=== PATIENT | male | born 1960 ===

== ENCOUNTER 2017-11-03 15:57 | Inpatient (IN) | payer OTHER ==
[2017-11-03 15:58] VITALS: BMI 35.2
[2017-11-03 17:27] LABS: BASO % 0.5 % (0.0-2.0); EOS # 0.2 K/uL (0.0-0.7); EOS % 2.4 % (0.0-4.0); HEMOGLOBIN 13.9 g/dL (12.0-18.0); LYMPH # 2.1 K/uL (1.0-4.3); LYMPH % 24.1 % (20.0-40.0); MEAN CELL VOLUME 82.9 fL (80.0-94.0); MEAN CORPUSCULAR HEMOGLOBIN 28.6 pg (27.0-31.0); MEAN CORPUSCULAR HGB CONC 34.5 g/dL (33.0-37.0); MEAN PLATELET VOLUME 7.5 fL (7.2-11.7); MONO # 0.8 K/uL (0.0-0.8); MONO % 9.5 % (0.0-10.0); NEUT # 5.5 K/uL (1.8-7.0); NEUT % 63.5 % (50.0-75.0); NRBC % 0.2 % (0.0-2.0); RBC 4.87 Mil/uL (4.40-5.90); RED CELL DISTRIBUTION WIDTH 14.1 % (11.5-14.5); WHITE BLOOD COUNT 8.7 K/uL (4.8-10.8)
--- NOTE | 2017-11-03 17:40 | C.PDOC ---
History Of Present Illness 57 y/o male presents to the ED requesting detox from heroin. Patient admits he uses heroin intranasally, but has history of IVDA in the past. Last use was earlier today around 2-3pm and he used 5 bags. States that he typically uses 5- 8 bags per day. Patient also reports history of HIV and hepatitis. States he suffers from significant withdrawal symptoms including tremors, sweats, abdominal pain, vomiting, and diarrhea. Currently he denies any physical complaints. Time Seen by Provider: 11/03/17 16:52 Chief Complaint (Nursing): Substance Abuse History Per: Patient History/Exam Limitations: no limitations Onset/Duration Of Symptoms: Days Current Symptoms Are (Timing): Still Present Suicide/Self Injury Attempted (Context): None Modifying Factor(s): Other (Heroin) Involuntary Hold By: None Past Medical History Reviewed: Historical Data, Nursing Documentation, Vital Signs Vital Signs: Last Vital Signs Temp 98 F 11/03/17 16:12 Pulse 93 H 11/03/17 16:12 Resp 18 11/03/17 16:12 BP 144/76 11/03/17 16:12 Pulse Ox 95 11/03/17 18:04 - Medical History PMH: Hepatitis, HIV Other PMH: Substance abuse - [facility] Procedures APPLICATION OF SPLINT (12/22/14) CLOSURE SKIN & SUBCUTANEOUS NEC (10/27/14) Family History: States: Unknown Family Hx - Social History Hx Tobacco Use: Yes Hx Alcohol Use: No Hx Substance Use: Yes (heroin) - Immunization History Hx Tetanus Toxoid Vaccination: Yes Hx Influenza Vaccination: Yes Hx Pneumococcal Vaccination: No Review Of Systems Except As Marked, All Systems Reviewed And Found Negative. Constitutional: Negative for: Fever, Chills, Sweats Gastrointestinal: Negative for: Nausea, Vomiting, Abdominal Pain Neurological: Negative for: Weakness, Other (tremors or shakes) Physical Exam - Physical Exam Appears: Non-toxic, No Acute Distress Skin: Normal Color, Warm, Dry Head: Atraumatic, Normacephalic Eye(s): bilateral: Normal Inspection Oral Mucosa: Moist Teeth: Edentulous (missing several teeth) Neck: Normal ROM, Supple Chest: Symmetrical Cardiovascular: Rhythm Regular, No Murmur Respiratory: Normal Breath Sounds, No Rales, No Rhonchi, No Wheezing Gastrointestinal/Abdominal: Soft, No Tenderness, No Distention Back: Normal Inspection Extremity: Bilateral: Atraumatic, Normal Color And Temperature, Normal ROM Neurological/Psych: Oriented x3, Normal Speech ED Course And Treatment - Laboratory Results Result Diagrams: 11/03/17 17:26 11/03/17 17:07 O2 Sat by Pulse Oximetry: 95 (RA) Pulse Ox Interpretation: Normal Medical Decision Making Medical Decision Making: Impression: Heroin abuse, requesting detox Plan: * CMP * Urine drug screen * Alcohol serum * CBC * Urinalysis * Crisis evaluation Disposition Counseled Patient/Family Regarding: Studies Performed, Diagnosis - Disposition Disposition: HOSPITALIZED Disposition Time: 18:54 Condition: GUARDED Forms: [employer] ([place]) - Clinical Impression Clinical Impression: Drug dependence - Scribe Statement The provider has reviewed the documentation as recorded by the Scribe (Lilliana Ortiz) Provider Attestation: All medical record entries made by the Scribe were at my direction and personally dictated by me. I have reviewed the chart and agree that the record accurately reflects my personal performance of the history, physical exam, medical decision making, and the department course for this patient. I have also personally directed, reviewed, and agree with the discharge instructions and disposition. Decision To Admit - Pt Status Changed To: Hospital Disposition Of: Inpatient - Admit Certification Admit to Inpatient:: After my assessment, the patient will require hospitalization for at least two midnights. This is because of the severity of symptoms shown, intensity of services needed, and/or the medical risk in this patient being treated as an outpatient. - InPatient: Physician Admission Certification: I certify that this patient requires 2 or more midnights of care for the following reason:: needs medical detox, hx of severe opioid withdrawl - . Bed Request Type: Detox Patient Diagnosis: Drug dependence
[2017-11-03 17:48] LABS: SQUAMOUS EPITHIAL < 1 /hpf (0-5); URINE BACTERIA RARE (<OCC); URINE BILIRUBIN NEGATIVE (NEGATIVE); URINE BLOOD NEGATIVE (NEGATIVE); URINE CALCIUM OXALATE CRYSTALS RARE /hpf (<OCC); URINE CLARITY Clear (Clear); URINE COLOR Yellow (YELLOW); URINE GLUCOSE (UA) NORMAL (Normal); URINE LEUKOCYTE ESTERASE NEG Leu/uL (Negative); URINE PROTEIN NEGATIVE (NEGATIVE)
[2017-11-03 18:18] LABS: ALB/GLOB RATIO 1.1 (1.0-2.1); ALBUMIN 4.3 g/dL (3.5-5.0); ALT/SGPT 28 U/L (21-72); AST/SGOT 14 U/L (17-59); BLOOD UREA NITROGEN 11 mg/dL (9-20); CALCIUM 9.4 mg/dl (8.6-10.4); GFR AFRICAN-AMERICAN > 60; GFR NON-AFRICAN AMERICAN > 60
[2017-11-03 18:40] LABS: BARBITURATES, UR NEGATIVE (NEGATIVE); BENZODIAZEPINES, UR NEGATIVE (NEGATIVE); PHENCYCLIDINE, UR NEGATIVE (NEGATIVE)
[2017-11-03 18:48] LABS: OPIATES, UR POSITIVE (NEGATIVE)
--- NOTE | 2017-11-03 19:03 | PCM.BM ---
<Rashad Garcia - Last Filed: 11/03/17 19:01> Treatment Plan Problems - Problems identified on initial assessmt potential for opiate withdrawal Date Initiated: 11/03/17 Time Initiated: 19:02 Status: Active Treatment assets and liabiliti Patient Liabilities: substance abuse, medical problems - Milieu Protocol Maintain good personal hygiene: daily Encourage regular showers, daily Remind patient to perform daily oral care, daily Assist patient to perform ADL's Conduct patient checks and document Observation sheet: Q15 minutes Maintain personal safety: every shift Educate patient to report safety concerns to staff, every shift Monitor environment for contraband/sharps Medication safety: Monitor for expected outcome, potential side effects: every shift, Assess barriers to learning: every shift, Assess readiness for medication education: every shift <Marcela Loyola - Last Filed: 11/08/17 08:52> - Diagnosis (1) Opioid use disorder, severe, dependence Status: Acute Interventions: 11/06/17 18:52 * Assess 7x/week regarding severity of withdrawal * Educate regarding risks, benefits, side effects and alternatives of medications * Use Motivational Interviewing for abstinence * Use CBT for relapse prevention * Medication management for withdrawal symptoms * Encourage medication assisted treatment *
[2017-11-04] MEDS ORDERED: Aluminum Hydroxide/Magnesium Hydroxide Susp (30 mL) PO PRN (00:01)
[2017-11-04] MEDS: [UNRECOGNIZED DRUG - OTHER] PO SCH (10:39)
--- NOTE | 2017-11-04 21:05 | PCM.PSYCH ---
Initial Psychiatric Evaluation - Initial Psychiatric Evaluation Type of Admission: Voluntary Legal Status: Capacity Chief Complaint (in patient's own words): I need help from his substance use. History of Present Illness and Precipitating Events: Patient is a 57 years old, single, unemployed, male with no previous psychiatric history was admitted due to withdrawing from heroin and cannabis. Patient was a poor historian and is very difficult to get history from the patient. Reported he started using heroin 30 years ago. He was in [facility] in the past has court mandated treatment. Reported he relapsed on heroin about 78 months ago and currently he was using 5 bags daily, sniffing. Last use was yesterday. Cannabis: Started using cannabis at 16 years of age, was using 2-3 joints daily. Last used yesterday. He also smokes 4-5 cigarettes daily and is requesting for nicotine patch. He has HIV and hepatitis C. He was born in [place], has 11th grade of education from [place]. Moved to [facility] in [place]. He is not working, on disability. Never and has 3 grown up children. He lives alone. His height is 5 feet 7 inches and weight is 219 pounds. Current Medications: Active Medications Generic Name Dose Route Start Last Admin Trade Name Freq PRN Reason Stop Dose Admin Al Hydrox/Mg Hydrox/Simethicone 30 ml 11/04/17 00:01 Maalox 30 Ml PO TID PRN Indigestion / Heartburn Clonidine HCl 0.1 mg 11/03/17 20:45 Catapres PO Q6 PRN high bp Dicyclomine HCl 20 mg 11/04/17 00:02 Bentyl PO Q6 PRN Abdominal Cramp Dolutegravir Sodium 50 mg 11/04/17 10:00 11/04/17 10:39 Tivicay PO 11/15/17 10:01 50 mg DAILY JANINA Administration Protocol Gabapentin 400 mg 11/04/17 10:00 11/04/17 17:58 Neurontin PO 400 mg TID JANINA Administration Home Med 1 tab 11/04/17 10:00 11/04/17 10:39 Patient's Own Medication PO 1 tab DAILY JANINA Administration Hydroxyzine HCl 25 mg 11/03/17 20:47 Atarax PO Q6 PRN Anxiety Ibuprofen 400 mg 11/04/17 00:03 Motrin Tab PO Q6 PRN Pain, moderate (4-7) Loperamide HCl 2 mg 11/04/17 00:01 Imodium PO Q8 PRN Diarrhea Nicotine 1 patch 11/04/17 12:30 11/04/17 13:07 Nicoderm Cq TD 1 patch DAILY JANINA Administration Ondansetron HCl 4 mg 11/04/17 00:01 Zofran Tab PO Q8 PRN Nausea/Vomiting Trazodone HCl 50 mg 11/03/17 20:44 Desyrel PO HS PRN insomnia Past Psychiatric History - Past Psychiatric History Previous Treatment History: Intensive Outpatient [facility]: [facility] History of Abuse: None reported History of ETOH/Drug Use: See HPI History of Family Illness: Reported his brother has history of heroin use Pertinent Medical Hx (Current Medical&Sleep Prob, Allergies): Allergies Allergy/AdvReac Type Severity Reaction Status Date / Time No Known Allergies Allergy Verified 11/03/17 16:15 Cephalexin [Keflex] 500 mg PO BID #14 cap 09/14/15 Emtricitabine/Tenofovir Diso [Truvada 200 MG-300 MG] 1 tab PO DAILY 09/14/15 Sulfamethoxazole/Trimethoprim [Bactrim DS 800 mg-160 mg] 1 tab PO BID #14 tab HIV Hepatitis C Review of Systems - Psychiatric Psychiatric: As Per HPI Mental Status Examination - Personal Presentation Personal Presentation: Looks stated age - Affect Affect: Depressed - Motor Activity Motor Activity: Calm - Reliability in Providing Information Reliability in Providing Information: Fair - Speech Speech: Organized - Mood Mood: Depressed - Formal Thought Process Formal Thought Process: No Impairment - Hallucinations/Delusions Hallucinations: Other (None reported) Delusions: Other - Obsessions/Compulsions Obsessions: None Compulsions: None - Cognitive Functions Orientation: Person, Place, Situation, Time Sensorium: Alert Attention/Concentration: Attentive Abstract Thinking: Blanch Estimate of Intelligence: Average Judgement: Intact, as evidence by: Insight regarding need for hospitalization Memory: Recent intact, as evidence by: Ability to recall events of the day, Remote intact, as evidenced by: Ability to recall historical events - Risk Risk: Withdrawal, Diminished functioning - Strength & Assets Inventory Strength & Assets Inventory: Cooperative - Limitations Limitations: Living alone DSM 5 DX - DSM 5 DSM 5 Diagnosis: Opiate use disorder moderate Cannabis use disorder moderate - Recommended/Plan of Treatment Treatment Recommendations and Plan of Treatment: Patient education. Supportive therapy. CBT for relapse prevention. PA for abstinence. We will start Subutex taper for opiate withdrawal symptoms. Other when necessary medications. Projected ELOS: 4-5 days - Smoking Cessation Smoking Cessation Initiated: Yes
[2017-11-05] MEDS: [UNRECOGNIZED DRUG - OTHER] PO SCH (10:40)
[2017-11-05 13:22] VITALS: RESP 18
--- NOTE | 2017-11-05 17:38 | PCM.PYCHPN ---
Psychiatric Progress Note - Psychiatric Progress Note Patient seen today, length of contact: 15 minutes Patient Chief Complaint: I have a lot of withdrawal symptoms. Problems Identified/Issues Discussed: Patient seen, chart reviewed, case discussed with the staff. Issues related to illness and treatment were discussed with the patient and staff. Reported compliant with treatment with no adverse affects. Tolerating treatment very well. Calm and cooperative. Mood reported as anxious. Affect appropriate. Patient reported a lot of withdrawal symptoms. We will start methadone taper. His cows score was 9. Aftercare discussed with the patient. Patient was awake, alert and oriented 3. Denied any delusions, auditory or visual hallucinations, suicidal ideations or homicidal ideations at the time of evaluation. Medical Problems: HIV Hepatitis C Diagnostic Results: Reviewed Medication Change: Yes (Started methadone taper) Medical Record Reviewed: Yes Mental Status Examination - Cognitive Function Orientation: Person, Place, Situation, Time Memory: Intact Attention: WNL Concentration: WNL Association: [facility] Fund of Knowledge: [facility] Decription of patient's judgement and insights: Fair - Mood Mood: Anxious - Affect Affect: Other (Appropriate) - Speech Speech: Appropriate - Formal Thought Process Formal Thought Process: No Impairment Psychotic Thoughts and Behaviors: None - Suicidal Ideation Suicidal Ideation: No - Homicidal Ideation Homicidal Ideation: No Goal/Treatment Plan - Goal/Treatment Plan Need for Continued Stay: Remain at risks for inpatient hospitalization, Discharge may exacerbated symptoms, Severe functional impairment Progress Toward Problem(s) and Goals/Treatment Plan: Patient education. Supportive therapy. CBT for relapse prevention. MS for abstinence. We will start methadone taper for opiate withdrawal symptoms. Other when necessary medications. Estimated Date of D/C: 11/08/17 - Smoking Cessation Smoking Cessation Initiated: Yes
[2017-11-06] MEDS: [UNRECOGNIZED DRUG - OTHER] PO SCH (10:03)
--- NOTE | 2017-11-06 15:25 | PCM.PYCHPN ---
Psychiatric Progress Note - Psychiatric Progress Note Patient seen today, length of contact: 15 minutes Patient Chief Complaint: "So so" Problems Identified/Issues Discussed: The pt is seen, chart reviewed, case discussed with staff. The pt is compliant with medications and reports no side-effects. Symptoms are improving but needs more time to stabilize. After care discussed, support and psychoeducation given. Medication Change: Yes (Started methadone taper) Medical Record Reviewed: Yes Mental Status Examination - Cognitive Function Orientation: Person, Place, Situation, Time Memory: Intact Attention: WNL Concentration: WNL Association: WNL Fund of Knowledge: WNL - Mood Mood: Anxious - Affect Affect: Other (Appropriate) - Speech Speech: Appropriate - Formal Thought Process Formal Thought Process: No Impairment - Suicidal Ideation Suicidal Ideation: No - Homicidal Ideation Homicidal Ideation: No Goal/Treatment Plan - Goal/Treatment Plan Need for Continued Stay: Remain at risks for inpatient hospitalization, Discharge may exacerbated symptoms, Severe functional impairment Progress Toward Problem(s) and Goals/Treatment Plan: Taper with methadone Gabapentin for augmentation if needed As needed medications All risks, benefits and alternatives of the meds discussed, and the pt agreed and understood. Attend groups and activities Supportive therapy and psychoeducation MD for abstinence CBT for relapse prevention Encourage MAT Refer to rehab or IOP, and self-help groups Smoking cessation with MD Nicotine patch if needed Estimated Date of D/C: 11/08/17
[2017-11-07] MEDS: [UNRECOGNIZED DRUG - OTHER] PO SCH (09:34)
--- NOTE | 2017-11-08 08:48 | PCM.PYCHDC ---
Mental Status Examination - Mental Status Examination Orientation: Person Discharge Summary - Discharge Note Consultations:: List each consultation separately and include: 1. Reason for request. 2. Findings. 3. Follow-up Summary of Hospital Course include:: 1. Description of specific treatment plan utilized for patients during their course of treatmen. 2. Summarize the time- course for resolution of acute symptoms and/or regressed behaviors. 3. Describe issues identified and worked on during hospitalization. 4. Describe medication utilized. 5. Describe medical problems identified and treated. 6. Reassessment of suicide risk Summary of Hospital Course: He will go to [facility] - Final Diagnosis (DSM 5) Condition upon Discharge: GUARDED Disposition: HOME/ ROUTINE Follow-up Treatment Plan: Taper with methadone Gabapentin for augmentation if needed As needed medications All risks, benefits and alternatives of the meds discussed, and the pt agreed and understood. Attend groups and activities Supportive therapy and psychoeducation NV for abstinence CBT for relapse prevention Encourage MAT Refer to rehab or IOP, and self-help groups Smoking cessation with NV Nicotine patch if needed Prescriptions/Medication Reconciliation: Dolutegravir Sodium [Tivicay] 50 mg PO DAILY #30 tab Gabapentin [Neurontin] 400 mg PO TID #90 cap traZODone [Desyrel] 100 mg PO HS PRN #30 tab PRN Reason: insomnia
--- NOTE | 2017-11-08 08:51 | PCM.PYCHPN ---
Psychiatric Progress Note - Psychiatric Progress Note Patient seen today, length of contact: 15 minutes Patient Chief Complaint: "Better today" Problems Identified/Issues Discussed: The pt is seen, chart reviewed, case discussed with staff. Support and psychoeducation given, CBT and ID used briefly No new symptoms reported, improving slowly and needs more time No SEs from medications, risks discussed. After care discussed - he is now leaning towards MAT rather than IOP only, which is supported. Medication Change: Yes (methadone taper) Medical Record Reviewed: Yes Mental Status Examination - Cognitive Function Orientation: Person, Place, Situation, Time Memory: Intact Attention: WNL Concentration: WNL Association: WN Fund of Knowledge: WN - Mood Mood: Anxious - Affect Affect: Other (Appropriate) - Speech Speech: Appropriate - Formal Thought Process Formal Thought Process: No Impairment - Suicidal Ideation Suicidal Ideation: No - Homicidal Ideation Homicidal Ideation: No Goal/Treatment Plan - Goal/Treatment Plan Need for Continued Stay: Remain at risks for inpatient hospitalization, Discharge may exacerbated symptoms, Severe functional impairment Progress Toward Problem(s) and Goals/Treatment Plan: Taper with methadone Gabapentin for augmentation if needed As needed medications All risks, benefits and alternatives of the meds discussed, and the pt agreed and understood. Attend groups and activities Supportive therapy and psychoeducation ID for abstinence CBT for relapse prevention Encourage MAT Refer to rehab or IOP, and self-help groups Smoking cessation with ID Nicotine patch if needed Estimated Date of D/C: 11/08/17
[2017-11-08] MEDS: [UNRECOGNIZED DRUG - OTHER] PO SCH (09:22)
[2017-11-08 10:53] VITALS: BP 118/76; PULSE 69; TEMP 97.8; O2SAT 98
== END 2017-11-08 10:30 | disposition home or self-care (01) | DRG 895 ==
LOC: C.ER 15:57 → C.7D 18:55
PROC: HZ2ZZZZ Detoxification Services for Substance Abuse Treatment (ICD-10-PCS; principal; 2017-11-03)
PROC: HZ59ZZZ Individual Psychotherapy for Substance Abuse Treatment, Supportive (ICD-10-PCS; 2017-11-03)
PROC: HZ46ZZZ Group Counseling for Substance Abuse Treatment, Psychoeducation (ICD-10-PCS; 2017-11-03)
PROC: HZ80ZZZ Medication Management for Substance Abuse Treatment, Nicotine Replacement (ICD-10-PCS; 2017-11-03)
DX: F11.23 Opioid dependence with withdrawal (principal); F12.20 Cannabis dependence, uncomplicated; B19.20 Unspecified viral hepatitis C without hepatic coma; F17.210 Nicotine dependence, cigarettes, uncomplicated; Z21 Asymptomatic human immunodeficiency virus [HIV] infection status

== ENCOUNTER 2018-07-06 14:38 | Inpatient (IN) | payer OTHER ==
[2018-07-06 14:48] VITALS: BMI 36.8
--- NOTE | 2018-07-06 15:04 | C.PDOC ---
History Of Present Illness 58 y/o male pt presents to the ER requesting detox for heroin. Pt reports his last use was at 12 noon today, 3 bags. Pt has no other medical complaints or associated sx at this time. Time Seen by Provider: 07/06/18 15:00 Chief Complaint (Nursing): Substance Abuse History Per: Patient History/Exam Limitations: no limitations Onset/Duration Of Symptoms: Days Current Symptoms Are (Timing): Still Present Suicide/Self Injury Attempted (Context): None Modifying Factor(s): Other (heroin) Past Medical History Reviewed: Historical Data, Nursing Documentation, Vital Signs Vital Signs: Last Vital Signs Temp 98.3 F 07/06/18 14:47 Pulse 92 H 07/06/18 14:47 Resp 18 07/06/18 14:47 BP 143/85 07/06/18 14:47 Pulse Ox 96 07/06/18 14:47 - Medical History PMH: Hepatitis, HIV, Kidney Stones - [facility] Procedures APPLICATION OF SPLINT (12/22/14) CLOSURE SKIN & SUBCUTANEOUS NEC (10/27/14) DETOXIFICATION SERVICES FOR SUBSTANCE ABUSE TREATMENT (11/03/17) GROUP BODY SHOP TECHNICIAN FOR SUBSTANCE ABUSE TREATMENT, PSYCHOEDUCATION (11/03/17) INDIV PSYCHOTHERAPY FOR SUBSTANCE ABUSE TREATMENT, SUPPORT (11/03/17) MEDS MGMT FOR SUBSTANCE ABUSE TREATMENT, NICOTINE REPLACE (11/03/17) Family History: States: Unknown Family Hx - Social History Hx Tobacco Use: Yes Hx Alcohol Use: No Hx Substance Use: Yes - Immunization History Hx Tetanus Toxoid Vaccination: Yes Hx Influenza Vaccination: Yes Hx Pneumococcal Vaccination: No Review Of Systems Except As Marked, All Systems Reviewed And Found Negative. Neurological: Negative for: Weakness Psych: Negative for: Suicidal ideation Physical Exam - Physical Exam Additional Physical Exam Comments: Constitutional: No acute distress. Head: Normocephalic. Atraumatic. Eyes: PERRL. ENT: Moist mucous membranes. Neck: Supple. Cardiovascular: Regular rate. Radial pulse 2+ bilaterally. Chest: No tenderness. Respiratory: Clear to auscultation bilaterally. GI: Soft. Nontender. Nondistended. Back: No CVA tenderness. Musculoskeletal: No tenderness or swelling of extremities. Skin: No rash. Neurologic: Alert, no focal deficit. ED Course And Treatment - Laboratory Results Result Diagrams: 07/06/18 16:09 07/06/18 16:09 O2 Sat by Pulse Oximetry: 96 (RA) Pulse Ox Interpretation: Normal Medical Decision Making Medical Decision Making: Plans: -- chem labs -- blood work Disposition - Disposition Disposition: HOSPITALIZED Disposition Time: 17:30 Condition: FAIR Forms: [facility] (Urdu) - Clinical Impression Clinical Impression: Opioid use disorder, severe, dependence - Scribe Statement The provider has reviewed the documentation as recorded by the Scribe Anna Do Provider Attestation: All medical record entries made by the Scribe were at my direction and pers onally dictated by me. I have reviewed the chart and agree that the record accurately reflects my personal performance of the history, physical exam, medical decision making, and the department course for this patient. I have also personally directed, reviewed, and agree with the discharge instructions and disposition.
[2018-07-06 16:12] LABS: BASO % 0.3 % (0.0-2.0); EOS # 0.2 K/uL (0.0-0.7); EOS % 2.2 % (0.0-4.0); HEMOGLOBIN 14.4 g/dL (12.0-18.0); LYMPH % 32.6 % (20.0-40.0); MEAN CORPUSCULAR HEMOGLOBIN 28.6 pg (27.0-31.0); MEAN CORPUSCULAR HGB CONC 33.6 g/dL (33.0-37.0); MEAN PLATELET VOLUME 7.8 fL (7.2-11.7); MONO # 0.8 K/uL (0.0-0.8); MONO % 9.2 % (0.0-10.0); NEUT # 5.2 K/uL (1.8-7.0); NEUT % 55.7 % (50.0-75.0); NRBC % 0.1 % (0.0-2.0); RBC 5.03 Mil/uL (4.40-5.90); RED CELL DISTRIBUTION WIDTH 13.8 % (11.5-14.5); WHITE BLOOD COUNT 9.3 K/uL (4.8-10.8)
[2018-07-06 16:16] LABS: URINE BACTERIA RARE (<OCC); URINE BILIRUBIN NEGATIVE (NEGATIVE); URINE BLOOD NEGATIVE (NEGATIVE); URINE CLARITY Hazy (Clear); URINE COLOR Amber (YELLOW); URINE GLUCOSE (UA) NORMAL (Normal); URINE LEUKOCYTE ESTERASE NEG Leu/uL (Negative); URINE PROTEIN NEGATIVE (NEGATIVE)
[2018-07-06 16:33] LABS: ALB/GLOB RATIO 1.3 (1.0-2.1); ALBUMIN 4.6 g/dL (3.5-5.0); ALT/SGPT 15 U/L (21-72); AST/SGOT 26 U/L (17-59); BLOOD UREA NITROGEN 11 mg/dL (9-20); CALCIUM 9.6 mg/dl (8.6-10.4); GFR NON-AFRICAN AMERICAN > 60
[2018-07-06 17:22] LABS: BARBITURATES, UR NEGATIVE (NEGATIVE); BENZODIAZEPINES, UR NEGATIVE (NEGATIVE); PHENCYCLIDINE, UR NEGATIVE (NEGATIVE)
[2018-07-06 17:32] LABS: OPIATES, UR POSITIVE (NEGATIVE)
--- NOTE | 2018-07-06 20:22 | PCM.BM ---
<Yessica Moncada - Last Filed: 07/06/18 20:21> Treatment Plan Problems - Problems identified on initial assessmt Denial Date Initiated: 07/06/18 Time Initiated: 20:21 Assessment reference: NA Status: Active Defensive Coping Date Initiated: 07/06/18 Time Initiated: 20:22 Assessment reference: NA Status: Active Chronic Low Self Esteem Date Initiated: 07/06/18 Time Initiated: 20:22 Assessment reference: NA Status: Active Treatment assets and liabiliti Patient Assests: cooperative, ADL independent, negotiates basic needs, cognitively intact Patient Liabilities: substance abuse, medical problems - Milieu Protocol Maintain good personal hygiene: daily Encourage regular showers, daily Remind patient to perform daily oral care, daily Assist patient to perform ADL's Conduct patient checks and document Observation sheet: Q15 minutes Maintain personal safety: every shift Educate patient to report safety concerns to staff, every shift Monitor environment for contraband/sharps Medication safety: Monitor for expected outcome, potential side effects: every shift, Assess barriers to learning: every shift, Assess readiness for medication education: every shift <Marcela Loyola - Last Filed: 07/09/18 23:57> - Diagnosis (1) Opioid use disorder, severe, dependence Status: Acute Interventions: 07/09/18 13:57 * Assess 7x/week regarding severity of withdrawal * Educate regarding risks, benefits, side effects and alternatives of medications * Use Motivational Interviewing for abstinence * Use CBT for relapse prevention * Medication management for withdrawal symptoms * Encourage medication assisted treatment *
[2018-07-07] MEDS: ODEFSEY PO SCH (09:35)
--- NOTE | 2018-07-07 11:22 | CP.PCM.PCO ---
Physician Communication Note - Physician Communication Note Physician Communication Note: Pt started withdrawing significantly. Admitted to detox inpatient now.
[2018-07-07] MEDS ORDERED: Aluminum Hydroxide/Magnesium Hydroxide Susp (30 mL) PO PRN (14:00)
--- NOTE | 2018-07-07 23:12 | PCM.PSYCH ---
Initial Psychiatric Evaluation - Initial Psychiatric Evaluation Type of Admission: Voluntary Legal Status: Capacity Chief Complaint (in patient's own words): I need help for my substance use. History of Present Illness and Precipitating Events: Patient is a 58 years old, single, unemployed, male who was admitted due to withdrawing from heroin and cannabis. Patient was a poor historian and was very difficult to obtain history from the patient. Patient was also very uncooperative. Most of the history was obtained from the previous records. Reported he started using heroin 30 years ago. He was in [facility] in the past due to court mandated treatment. Reported he was using 5 bags daily, sniffing. Last use was yesterday. Cannabis: Started using cannabis at 16 years of age, was using 2-3 joints daily. Last used yesterday. He also smokes 4-5 cigarettes daily and is requesting for nicotine patch. He has HIV and hepatitis C. He was born in [place], has 11th grade of education from [place]. Moved to [facility] in [place]. He is not working, on disability. Never and has 3 grown up children. He lives alone. His height is 5 feet 7 inches and weight is 219 pounds. Current Medications: Active Medications Generic Name Dose Route Start Last Admin Trade Name Freq PRN Reason Stop Dose Admin Al Hydrox/Mg Hydrox/Simethicone 30 ml 07/07/18 14:00 Maalox 30 Ml PO TID PRN Indigestion / Heartburn Clonidine HCl 0.1 mg 07/07/18 09:19 07/07/18 22:45 Catapres PO 0.1 mg Q8 PRN Administration opioid withdrawal Dicyclomine HCl 10 mg 07/07/18 09:22 Bentyl PO Q6 PRN Muscle spasm Dolutegravir Sodium 50 mg 07/07/18 10:00 07/07/18 11:43 Tivicay PO 50 mg DAILY JANINA Administration Home Med 1 unit 07/07/18 10:00 07/07/18 09:35 Home Med PO 07/08/18 10:01 1 unit DAILY JANINA Administration Hydroxyzine HCl 25 mg 07/07/18 09:17 07/07/18 21:49 Atarax PO 25 mg Q8 PRN Administration Anxiety Ibuprofen 600 mg 07/07/18 12:00 07/07/18 22:45 Motrin Tab PO 600 mg Q6 PRN Administration Pain, moderate (4-7) Loperamide HCl 2 mg 07/07/18 14:00 Imodium PO Q8 PRN Diarrhea Methadone HCl 15 mg 07/08/18 10:00 Methadone PO 07/11/18 09:59 Q24H JANINA Taper Nicotine 1 patch 07/08/18 10:00 Nicoderm Cq TD DAILY JANINA Ondansetron HCl 4 mg 07/07/18 09:16 07/07/18 09:35 Zofran Tab PO 4 mg Q6 PRN Administration Nausea/Vomiting Trazodone HCl 50 mg 07/06/18 20:51 07/07/18 21:49 Desyrel PO 50 mg HS PRN Administration Insomnia Past Psychiatric History - Past Psychiatric History Previous Treatment History: Inpatient History of Abuse: None reported History of ETOH/Drug Use: See HPI History of Family Illness: Reported his brother has history of heroin use. Pertinent Medical Hx (Current Medical&Sleep Prob, Allergies): Allergies Allergy/AdvReac Type Severity Reaction Status Date / Time No Known Allergies Allergy Verified 07/06/18 14:47 Dolutegravir Sodium [Tivicay] 50 mg PO DAILY #30 tab 11/08/17 Emtricitab/Rilpiviri/Tenof Ala [Odefsey Tablet] 1 tab PO DAILY 07/06/18 Ibuprofen [Motrin Tab] 800 mg PO TID 07/06/18 Hepatitis C HIV Review of Systems - Psychiatric Psychiatric: As Per HPI, Abnormal Sleep Pattern, Anxiety, Irritability Mental Status Examination - Personal Presentation Personal Presentation: Looks stated age - Affect Affect: Other (Appropriate) - Motor Activity Motor Activity: Calm - Reliability in Providing Information Reliability in Providing Information: Fair - Speech Speech: Organized - Mood Mood: Anxious - Formal Thought Process Formal Thought Process: No Impairment - Hallucinations/Delusions Hallucinations: Other (None reported) Delusions: Other - Obsessions/Compulsions Obsessions: None Compulsions: None - Cognitive Functions Orientation: Person, Place, Situation, Time Sensorium: Alert Attention/Concentration: Attentive Abstract Thinking: [place] Estimate of Intelligence: Average Judgement: Intact, as evidence by: Insight regarding need for hospitalization Memory: Recent intact, as evidence by: Ability to recall events of the day, Remote intact, as evidenced by: Ability to recall historical events - Risk Risk: Withdrawal, Diminished functioning - Strength & Assets Inventory Strength & Assets Inventory: Cooperative - Limitations Limitations: Other DSM 5 DX - DSM 5 DSM 5 Diagnosis: Opioid withdrawal Opioid use disorder severe Cannabis withdrawal Cannabis use disorder severe - Recommended/Plan of Treatment Treatment Recommendations and Plan of Treatment: Patient education. Supportive therapy. CBT for relapse prevention. MS for abstinence. Will start methadone taper for opioid withdrawal symptoms. Other PRN medications. Projected ELOS: 4-5-day Discharge Plan and Discharge Criteria: No or minimal withdrawal symptoms - Smoking Cessation Smoking Cessation Initiated: Yes
[2018-07-08] MEDS: ODEFSEY PO SCH (10:53)
--- NOTE | 2018-07-09 10:24 | PCM.PYCHPN ---
Psychiatric Progress Note - Psychiatric Progress Note Patient seen today, length of contact: 19 min Patient Chief Complaint: "Not good" Problems Identified/Issues Discussed: The pt is seen, chart reviewed, case discussed with staff. The pt is compliant with medications and reports no side-effects. Symptoms are improving but needs more time to stabilize. Pt attends groups and activities. Support given, psycho-education provided. After care discussed. Medication Change: Yes (detox changes daily) Medical Record Reviewed: Yes Mental Status Examination - Cognitive Function Orientation: Person, Place, Situation, Time Memory: Intact Attention: WNL Concentration: Poor Association: WNL Fund of Knowledge: WNL - Mood Mood: Anxious - Affect Affect: Constricted - Speech Speech: Appropriate - Formal Thought Process Formal Thought Process: No Impairment - Suicidal Ideation Suicidal Ideation: No - Homicidal Ideation Homicidal Ideation: No Goal/Treatment Plan - Goal/Treatment Plan Need for Continued Stay: Discharge may exacerbated symptoms, Severe functional impairment Progress Toward Problem(s) and Goals/Treatment Plan: Continue medications Support and psychoeducation daily Attend groups and activities daily After care planning by counselors
--- NOTE | 2018-07-11 08:44 | PCM.PYCHDC ---
Mental Status Examination - Mental Status Examination Orientation: Person, Place, Situation, Time Memory: Intact Mood: Anxious Affect: Constricted Speech: Appropriate Attention: WNL Concentration: WNL Association: WNL Fund of Knowledge: WNL Formal Thought Process: No Impairment Suicidal Ideation: No Current Homicidal Ideation?: No Discharge Summary - Discharge Note Reason for Hospitalization: Opioid detox Consultations:: List each consultation separately and include: 1. Reason for request. 2. Findings. 3. Follow-up Summary of Hospital Course include:: 1. Description of specific treatment plan utilized for patients during their course of treatmen. 2. Summarize the time- course for resolution of acute symptoms and/or regressed behaviors. 3. Describe issues identified and worked on during hospitalization. 4. Describe medication utilized. 5. Describe medical problems identified and treated. 6. Reassessment of suicide risk Summary of Hospital Course: The pt was admitted and started on treatment with psychotherapy, support, psychoeducation and medications. CA and CBT used. The pt attended groups and activities, as well as milieu therapy. All the risks and benefits of medications are discussed and the patient understood and agreed. The pt improved with the treatments provided. After care discussed with the patient. [facility]. - Final Diagnosis (DSM 5) Condition upon Discharge: FAIR DSM 5: Opioid withdrawal Opioid use disorder severe Cannabis withdrawal Cannabis use disorder severe Disposition: HOME/ ROUTINE Follow-up Treatment Plan: Continue below medications after discharge. Follow after care plan as discussed. Use relapse prevention skills Return to ER or call 911 if suicidal, homicidal or symptoms relapse. Stay away from stress, alcohol and drugs. See primary doctor regularly and get labs. Prescriptions/Medication Reconciliation: Dolutegravir Sodium [Tivicay] 50 mg PO DAILY #30 tab Emtricitab/Rilpiviri/Tenof Ala [Odefsey Tablet] 1 tab PO DAILY #30 tablet traZODone [Desyrel] 100 mg PO HS #30 tab
--- NOTE | 2018-07-11 08:44 | PCM.PYCHPN ---
Psychiatric Progress Note - Psychiatric Progress Note Patient seen today, length of contact: 19 min Patient Chief Complaint: "Not good" Problems Identified/Issues Discussed: The pt is seen, chart reviewed, case discussed with staff. The pt is compliant with medications and reports no side-effects. Symptoms are improving but needs more time to stabilize. Pt attends groups and activities. Support given, psycho-education provided. After care discussed. Medication Change: Yes (detox changes daily) Medical Record Reviewed: Yes Mental Status Examination - Cognitive Function Orientation: Person - Mood Mood: Anxious - Affect Affect: Constricted - Speech Speech: Appropriate - Formal Thought Process Formal Thought Process: No Impairment - Suicidal Ideation Suicidal Ideation: No - Homicidal Ideation Homicidal Ideation: No Goal/Treatment Plan - Goal/Treatment Plan Need for Continued Stay: Discharge may exacerbated symptoms, Severe functional impairment Progress Toward Problem(s) and Goals/Treatment Plan: Continue medications Support and psychoeducation daily Attend groups and activities daily After care planning by counselors
[2018-07-11 09:57] VITALS: BP 117/75; PULSE 103; RESP 18; TEMP 97.6; O2SAT 98
== END 2018-07-11 09:45 | disposition home or self-care (01) | DRG 895 ==
LOC: C.ER 14:38 → C.7D 17:54
PROC: HZ52ZZZ Individual Psychotherapy for Substance Abuse Treatment, Cognitive-Behavioral (ICD-10-PCS; principal; 2018-07-06)
PROC: HZ2ZZZZ Detoxification Services for Substance Abuse Treatment (ICD-10-PCS; 2018-07-06)
PROC: HZ56ZZZ Individual Psychotherapy for Substance Abuse Treatment, Psychoeducation (ICD-10-PCS; 2018-07-06)
PROC: HZ46ZZZ Group Counseling for Substance Abuse Treatment, Psychoeducation (ICD-10-PCS; 2018-07-06)
PROC: GZHZZZZ Group Psychotherapy (ICD-10-PCS; 2018-07-06)
PROC: GZ58ZZZ Individual Psychotherapy, Cognitive-Behavioral (ICD-10-PCS; 2018-07-06)
PROC: GZ56ZZZ Individual Psychotherapy, Supportive (ICD-10-PCS; 2018-07-06)
PROC: HZ42ZZZ Group Counseling for Substance Abuse Treatment, Cognitive-Behavioral (ICD-10-PCS; 2018-07-06)
PROC: HZ59ZZZ Individual Psychotherapy for Substance Abuse Treatment, Supportive (ICD-10-PCS; 2018-07-06)
DX: F11.23 Opioid dependence with withdrawal (principal); F12.23 Cannabis dependence with withdrawal; B19.20 Unspecified viral hepatitis C without hepatic coma; F17.210 Nicotine dependence, cigarettes, uncomplicated; Z21 Asymptomatic human immunodeficiency virus [HIV] infection status; Z87.442 Personal history of urinary calculi